=== PATIENT | female | born 1935 | race Caucasian/White ===

== ENCOUNTER → 2017-04-28 11:40 | Outpatient (CLI) | payer MEDICARE ==
[2015-05-15 13:37] VITALS: BMI 34.2
[~2017-04-28 11:40] MED LIST: ADDERALL 10 MG10 MG PO; ADDERALL 15 MG15 MG PO; AMBIEN5 MG PO; ARMOUR THYROID90 MG PO; ASCORBIC ACID500 MG PO; COUMADIN2 MG PO; DEMADEX20 MG PO; DIOVAN160 MG PO; KLOR-CON 1010 MEQ PO; KRILL OIL PO; MUCOMYST 2800 MG/4 M PO; MULTIPLE VITAMI1 TA1 PO; SINGULAIR10 MG PO; VITAMIN D5000 UNIT PO; ZOCOR20 MG PO
== END | disposition home or self-care (01) ==
LOC: D.MRI 11:40
DX: R51 Headache (principal)